=== PATIENT | female | born 2000 | race Caucasian/White ===

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

== ENCOUNTER 2019-06-18 07:44 | Emergency (ER) | payer OTHER ==
[~2019-06-18] VITALS: Ht 165.1 cm; Wt 86.1 kg
[~2019-06-18 07:44] MED LIST: IBUP-1022 PO; INSUHUMDS SC; INSULANT SC
[2019-06-18] MEDS ORDERED: BASA100I (07:51)
[2019-06-18] MEDS ORDERED: NEXP1IMP SC (07:53)
[2019-06-18 08:41] LABS: BASO % 0.4 % (0.0-1.0); EOS # 0.1 10^3/uL (0.0-0.5); EOS % 1.2 % (0.0-3.0); HEMATOCRIT 45.3 % (36.0-47.0); HEMOGLOBIN 16.1 g/dl (12.0-15.5); LYMPH # 1.9 10^3/uL (1.5-5.0); LYMPH % 24.2 % (24.0-44.0); MEAN CORPUSCULAR HEMOGLOBIN 30.4 pg (27.0-33.0); MEAN CORPUSCULAR HGB CONC 35.5 g/dl (32.0-36.5); MEAN CORPUSCULAR VOLUME 85.5 fl (80.0-96.0); MONO # 0.4 10^3/uL (0.0-0.8); MONO % 5.5 % (0.0-5.0); NEUTROPHILS # 5.4 10^3/uL (1.5-8.5); NEUTROPHILS % 68.6 % (36.0-66.0); PLATELET COUNT, AUTOMATED 227 10^3/uL (150-450); WHITE BLOOD COUNT 7.8 10^3/uL (4.0-10.0)
[2019-06-18 08:57] LABS: ALBUMIN 4.3 GM/DL (3.2-5.2); ALT/SGPT 23 U/L (12-78); BILIRUBIN,DIRECT 0.1 MG/DL (0.0-0.2); BILIRUBIN,TOTAL 0.5 MG/DL (0.2-1.0); BLOOD UREA NITROGEN 8 MG/DL (7-18); CARBON DIOXIDE LEVEL 26 MEQ/L (21-32); CHLORIDE LEVEL 106 MEQ/L (98-107); CREATININE FOR GFR 0.83 MG/DL (0.55-1.30); GLUCOSE, FASTING 170 MG/DL (70-100); MAGNESIUM LEVEL 1.8 MG/DL (1.8-2.4); POTASSIUM SERUM 3.6 MEQ/L (3.5-5.1); SODIUM LEVEL 137 MEQ/L (136-145); TOTAL PROTEIN 7.5 GM/DL (6.4-8.2)
[2019-06-18 09:01] LABS: HEMOGLOBIN A1c 6.9 %
[2019-06-18 09:05] LABS: FREE T4 1.47 NG/DL (0.78-1.33); THYROID STIMULATING HORMONE 1.84 uIU/ML (0.463-3.98)
[2019-06-18 09:39] VITALS: BP 118/72
== END 2019-06-18 09:40 | disposition home or self-care (01) ==
LOC: M ED 07:44
DX: E16.2 Hypoglycemia, unspecified (principal); E10.9 Type 1 diabetes mellitus without complications; R19.7 Diarrhea, unspecified; R53.1 Weakness; Z79.4 Long term (current) use of insulin

== ENCOUNTER → 2019-12-15 | Outpatient (CLI) | payer BC ==
[~2019-12-15] MED LIST changes: +BASA100I; +NEXP1IMP SC
[2019-12-15 14:38] LABS: ALT/SGPT 20 U/L (12-78); BILIRUBIN,TOTAL 0.7 MG/DL (0.2-1.0); BLOOD UREA NITROGEN 12 MG/DL (7-18); CALCIUM LEVEL 9.1 MG/DL (8.5-10.1); CARBON DIOXIDE LEVEL 28 MEQ/L (21-32); CHLORIDE LEVEL 105 MEQ/L (98-107); CHOLESTEROL LEVEL 189 MG/DL (<200); CHOLESTEROL RISK RATIO 3.258 (<5); GLUCOSE, FASTING 158 MG/DL (70-100); HDL CHOLESTEROL 58 MG/DL (>40); LDL CHOLESTEROL 119 MG/DL (<100); NON-HDL-C 131 MG/DL; POTASSIUM SERUM 4.1 MEQ/L (3.5-5.1); SODIUM LEVEL 138 MEQ/L (136-145); TOTAL PROTEIN 6.7 GM/DL (6.4-8.2); TRIGLYCERIDES LEVEL 58 MG/DL (<150)
[2019-12-17 09:42] LABS: TOTAL 25(OH) VITAMIN D 17.5 NG/ML (30.0-100.0)
== END ==
LOC: M WUC 11:23
PROVIDERS: ATTEND Physician Assistant
DX: E78.00 Pure hypercholesterolemia, unspecified (principal); E10.65 Type 1 diabetes mellitus with hyperglycemia; E55.9 Vitamin D deficiency, unspecified; Z79.4 Long term (current) use of insulin

== ENCOUNTER → 2025-05-15 | Outpatient (REF) | payer BC, OTHER, SELFPAY ==
[~2025-05-15] MED LIST changes: +ETON68IM SC; -NEXP1IMP SC
[2025-05-15 19:07] LABS: CREATININE, URINE 25.0 MG/DL; MALB URINE SIEMENS < 3.0 MG/L
== END ==
LOC: M SFHCLERA 17:28
PROVIDERS: ATTEND Student in an Organized Health Care Education/Training Program
DX: E10.9 Type 1 diabetes mellitus without complications (principal)

== ENCOUNTER → 2025-06-05 | Outpatient (REF) | payer OTHER ==
[2025-06-05 18:18] LABS: ALT/SGPT 28 U/L (7.0-40); AST/SGOT 19 U/L (<34); CALCIUM LEVEL 9.2 MG/DL (8.5-10.1); CARBON DIOXIDE LEVEL 28 MMOL/L (20-31); CHLORIDE LEVEL 103 MMOL/L (98-107); CREATININE FOR GFR 0.67 MG/DL (0.55-1.30); GLOMERULAR FILTRATION RATE > 90.0 (>60); POTASSIUM SERUM 4.4 MMOL/L (3.5-5.1); SODIUM LEVEL 140 MMOL/L (136-145)
[2025-06-05 19:20] LABS: ESTIMATED AVERAGE GLUCOSE 180.0 MG/DL (60-110)
== END ==
LOC: M LABWUC 17:23
PROVIDERS: ATTEND Student in an Organized Health Care Education/Training Program
DX: E10.9 Type 1 diabetes mellitus without complications (principal)

== ENCOUNTER → 2025-09-11 | Outpatient (CLI) | payer OTHER ==
[~2025-09-11] MED LIST changes: -IBUP-1022 PO; +IBUP600T42 PO
[2025-09-11 17:12] LABS: BASO # 0.0 10^3/uL (0.0-0.2); BASO % 0.3 % (0.0-1.0); EOS # 0.1 10^3/uL (0.0-0.5); EOS % 0.6 % (0.0-3.0); LYMPH # 2.6 10^3/uL (1.5-5.0); LYMPH % 25.6 % (24.0-44.0); MONO # 0.6 10^3/uL (0.0-0.8); MONO % 5.5 % (2.0-8.0); NEUTROPHILS # 7.0 10^3/uL (1.5-8.5); NEUTROPHILS % 67.8 % (36.0-66.0); PLATELET COUNT, AUTOMATED 253 10^3/uL (150-450)
[2025-09-11 17:16] LABS: ALT/SGPT 16 U/L (7.0-40); AST/SGOT 13 U/L (<34); CALCIUM LEVEL 9.5 MG/DL (8.5-10.1); CARBON DIOXIDE LEVEL 28 MMOL/L (20-31); CHLORIDE LEVEL 100 MMOL/L (98-107); CREATININE FOR GFR 0.60 MG/DL (0.55-1.30); GLOMERULAR FILTRATION RATE > 90.0 (>60); POTASSIUM SERUM 3.8 MMOL/L (3.5-5.1); SODIUM LEVEL 137 MMOL/L (136-145)
[2025-09-11 17:34] LABS: CREATININE, URINE 39.3 MG/DL; MALB URINE SIEMENS 65.0 MG/L; MAU/CREAT RATIO 165.3 MCG/MG (0.0-30.0)
[2025-09-11 18:05] LABS: ESTIMATED AVERAGE GLUCOSE 249.0 MG/DL (60-110)
== END ==
LOC: M WUC 14:56
PROVIDERS: ATTEND Student in an Organized Health Care Education/Training Program
DX: E10.65 Type 1 diabetes mellitus with hyperglycemia (principal)